=== PATIENT | male | born 1985 | race American Indian/Alaskan Native ===

== ENCOUNTER 2016-08-26 14:48 | Emergency (ER) | payer OTHER ==
--- NOTE | 2016-08-26 16:29 | EDM.PDOC ---
<Juan Keller - Last Filed: 08/26/16 18:44> ED HPI GENERAL MEDICAL PROBLEM - General Chief Complaint: Gastrointestinal Problem Stated Complaint: BLEEDING ULCER Time Seen by Provider: 08/26/16 17:36 Source of Information: Reports: Patient, RN Notes Reviewed History Limitations: Reports: No Limitations - History of Present Illness INITIAL COMMENTS - FREE TEXT/NARRATIVE: Complains of onset of upper abdominal pain and nausea yesterday worse today with vomiting times one. Patient reports generalized abdominal pain with cramping, pressure and distention. Over the past 7 to 8 hours he has developed some burning in the epigastric region. Denies any fevers or chills. Denies any stool changes. Patient takes some iron supplement which consistently keeps his stool dark greenish. Patient reports history of peptic ulcer disease and bowel obstruction. Severity: Severe Improves with: Reports: None Worsens with: Reports: Eating Associated Symptoms: Reports: No Other Symptoms Epigastric Pain Score (Numeric/FACES): 9 - Related Data Allergies Allergy/AdvReac Type Severity Reaction Status Date / Time lactose Allergy Stomach Verified 08/26/16 18:23 Upset Past Medical History Gastrointestinal History: Reports: Bowel Obstruction, GERD, GI Bleed, PUD Hematologic History: Reports: Anemia, Iron Deficiency - Past Surgical History GI Surgical History: Reports: EGD Social & Family History - Family History Family Medical History: Noncontributory - Tobacco Use Smoking Status *Q: Current Every Day Smoker Tobacco Use Within Last Twelve Months: Cigarettes Packs/Tins Daily: 0.3 - Alcohol Use Alcohol Use History: Yes Date/Time of Last Drink Comment: last drink over a year ago - Recreational Drug Use Recreational Drug Use: No ED ROS GENERAL - Review of Systems Review Of Systems: ROS reveals no pertinent complaints other than HPI. ED EXAM, GI/ABD - Physical Exam Exam: See Below Exam Limited By: No Limitations General Appearance: Alert, WD/WN, No Apparent Distress, Thin Eyes: Bilateral: Normal Appearance Nose: Normal Inspection, Normal Mucosa, No Blood Throat/Mouth: Normal Inspection, Normal Lips, Normal Teeth, Normal Gums, Normal Oropharynx, Normal Voice, No Airway Compromise Head: Atraumatic, Normocephalic Neck: Normal Inspection, Supple, Non-Tender, Full Range of Motion Respiratory/Chest: No Respiratory Distress, Lungs Clear, Normal Breath Sounds, No Accessory Muscle Use, Chest Non-Tender Cardiovascular: Regular Rate, Rhythm, No Edema GI/Abdominal: Soft, Tympanic Bowel Sounds, Tenderness (generalized upper abdominal). No: Guarding, Rebound, Rigidity Rectal (Males) Exam: Deferred (patient on oral iron supplementation) Back Exam: Normal Inspection, Full Range of Motion Extremities: Normal Inspection, Normal Range of Motion, Non-Tender, Normal Capillary Refill, No Pedal Edema Neurological: Alert, Oriented, CN II-XII Intact, Normal Cognition, Normal Gait, Normal Reflexes, No Motor/Sensory Deficits Psychiatric: Normal Affect, Normal Mood Skin Exam: Warm, Dry, Intact, Normal Color, No Rash Lymphatic: No Adenopathy Course - Vital Signs Last Recorded V/S: Last Vital Signs Temp 97.8 F 08/26/16 19:27 Pulse 58 L 08/26/16 19:27 Resp 22 H 08/26/16 19:27 BP 108/60 08/26/16 19:27 Pulse Ox 97 08/26/16 19:27 - Orders/Labs/Meds Orders: Active Orders 24 hr Category Date Time Status Peripheral IV Care [RC] . DIRECTED Care 08/26/16 17:43 Active DRUG SCREEN URINE BIORAD [URCHEM] Stat Lab 08/26/16 17:43 Uncollected UA W/MICROSCOPIC [URIN] Stat Lab 08/26/16 17:42 Uncollected Sodium Chloride 0.9% [Saline Flush] Med 08/26/16 17:42 Active 10 ml FLUSH ASDIRECTED PRN Peripheral IV Insertion Adult [OM.PC] Stat Oth 08/26/16 17:42 Ordered Medication Orders Sodium Chloride (Saline Flush) 10 ml FLUSH ASDIRECTED PRN PRN Reason: Keep Vein Open Last Admin: 08/26/16 18:08 Dose: 10 ml Labs: Laboratory Tests 08/26/16 08/26/16 Range/Units 17:58 17:58 WBC 11.5 H (5.0-10.0) 10^3/uL RBC 4.11 L (4.6-6.2) 10^6/uL Hgb 9.2 L (14.0-18.0) g/dL Hct 31.0 L (40.0-54.0) % MCV 75.4 L (80-100) fL MCH 22.4 L (27.0-34.0) pg MCHC 29.7 L (33.0-35.0) g/dL Plt Count 447 (150-450) 10^3/uL Neut % (Auto) 72.8 (42.2-75.2) % Lymph % (Auto) 19.3 L (20.5-50.1) % Crowley % (Auto) 6.2 (2-8) % Eos % (Auto) 1.2 (1.0-3.0) % Baso % (Auto) 0.5 (0.0-1.0) % Sodium 135 (135-145) mmol/L Potassium 3.9 (3.6-5.0) mmol/L Chloride 106 (101-111) mmol/L Carbon Dioxide 22.0 (21.0-31.0) mmol/L Anion Gap 10.9 BUN 10 (7-18) mg/dL Creatinine 0.7 (0.6-1.3) mg/dL Est Cr Clr Drug Dosing 108.90 mL/min Estimated GFR (MDRD) > 60 BUN/Creatinine Ratio 14.28 Glucose 87 (74-105) mg/dL Calcium 8.4 (8.4-10.2) mg/dl Total Bilirubin 0.6 (0.2-1.0) mg/dL AST 18 (10-42) IU/L ALT 14 (10-60) IU/L Alkaline Phosphatase 48 (42-121) IU/L Total Protein 7.1 (6.7-8.2) g/dl Albumin 3.9 (3.2-5.5) g/dl Globulin 3.2 Albumin/Globulin Ratio 1.22 Amylase 41 (28-100) U/L Lipase 21 L (22-51) U/L Ethyl Alcohol < 5 mg/dL Meds: Medications Generic Name Dose Route Start Last Admin Trade Name Freq PRN Reason Stop Dose Admin Sodium Chloride 10 ml 08/26/16 17:42 08/26/16 18:08 Saline Flush FLUSH 10 ml ASDIRECTED PRN Administration Keep Vein Open Discontinued Medications Generic Name Dose Route Start Last Admin Trade Name Freq PRN Reason Stop Dose Admin Sodium Chloride 1,000 mls @ 999 mls/hr 08/26/16 17:43 08/26/16 18:08 Normal Saline IV 08/26/16 18:43 999 mls/hr .BOLUS ONE Administration Iopamidol 75 ml 08/26/16 18:42 08/26/16 18:53 Isovue-300 (61%) IVPUSH 08/26/16 18:43 75 ml ONETIME ONE Administration Ondansetron HCl 4 mg 08/26/16 17:43 08/26/16 18:09 Zofran IV 08/26/16 17:44 4 mg ONETIME ONE Administration Pantoprazole Sodium 80 mg 08/26/16 17:44 08/26/16 18:10 Protonix Iv IVPUSH 08/26/16 17:45 80 mg .BOLUS ONE Administration - Radiology Interpretation Free Text/Narrative:: Abdomen x-ray: Per rad report is negative abdominal x-ray. Departure - Departure Disposition: Home, Self-Care 01 Clinical Impression: Gastroenteritis, Peptic ulcer disease - Discharge Information Instructions: Abdominal Pain, Adult, [id number] Additional Instructions: Protonix 40mg one every am Nothing solid for 24 hours then gradual increase in diet small amounts bland foodif tolerating chepe advance No alcohol Recheck Clinic on Sunday, if increase abdominal pain vomiting and distension <Eleonora Camilo - Last Filed: 08/26/16 19:56> Departure - Departure Time of Disposition: 19:46 Condition: fair
[2016-08-26] MEDS ORDERED: Sodium Chloride 0.9% 10 ML Syringe FLUSH PRN (17:42)
[2016-08-26] MEDS ORDERED: Sodium Chloride 0.9% 1,000 ML IV ONE (17:43)
[2016-08-26] MEDS ORDERED: Ondansetron 4 MG/2 ML SDV IV ONE (17:43)
[2016-08-26] MEDS ORDERED: Pantoprazole 40 MG Vial IVPUSH ONE (17:44)
[2016-08-26 18:22] LABS: CHLORIDE,CL 106 mmol/L (101-111); SODIUM,NA 135 mmol/L (135-145)
[2016-08-26] MEDS ORDERED: Iopamidol 612 MG/ML 75 ML Bottle IVPUSH ONE (18:42)
[2016-08-26 19:28] VITALS: BP 108/60
== END 2016-08-26 19:58 | disposition home or self-care (01) ==
LOC: DL.ED 14:48
DX: K52.9 Noninfective gastroenteritis and colitis, unspecified (principal); K27.9 Peptic ulcer, site unspecified, unspecified as acute or chronic, without hemorrhage or perforation; Z91.011 Allergy to milk products; K21.9 Gastro-esophageal reflux disease without esophagitis; F17.210 Nicotine dependence, cigarettes, uncomplicated
CPT/HCPCS: 36415; 74020; 74177; 80053; 82150; 83690; 85025; 96361; 96374; 96375; 99284; C9113; G0480; J2405; J7030; J7050; Q9967

== ENCOUNTER 2017-11-07 11:37 | Emergency (ER) | payer OTHER ==
[2017-11-07 11:56] VITALS: BP 110/81
[2017-11-07 12:12] LABS: ANION GAP 11.9; CHLORIDE,CL 105 mmol/L (101-111); SODIUM,NA 141 mmol/L (135-145)
[2017-11-07 12:15] LABS: ACETAMINOPHEN < 10
[2017-11-07] MEDS ORDERED: GI Cocktail Oral Solution 30 ML PO ONE (12:17)
--- NOTE | 2017-11-07 12:22 | CR ---
Clinical history: 31-year-old male chest pain. Interpretation: Upright AP portable chest unremarkable (external monitor worker leads). Normal cardiac silhouette without cephalization of flow, signs of alveolar edema or dependent pleural effusion. Left-sided aortic arch. No lung mass, hilar lymphadenopathy or focal lobar pneumonia. No atelectasis/collapse. No pneumothorax.
--- NOTE | 2017-11-07 12:51 | EDM.PDOC ---
ED HPI GENERAL MEDICAL PROBLEM - General Chief Complaint: Chest Pain Stated Complaint: STOMACH PAIN / ULCERS / CHEST PAIN Time Seen by Provider: 11/07/17 11:50 Source of Information: Reports: Patient History Limitations: Reports: No Limitations - History of Present Illness INITIAL COMMENTS - FREE TEXT/NARRATIVE: This 31 yo male patient reports to the ED with a 2 day history of a burning pressure in his chest. The patient reports he has a history of bleeding ulcers and was seen in the ED for this in the past. The patient reports that he has not followed-up with a primary care facility (due to not having a primary care provider). The patient reports he has been taking an over the counter medication for acid reduction, but quit taking the medication 2 days ago. Onset Date: 11/05/17 Duration: Constant, Getting Worse Location: Reports: Chest, Abdomen Quality: Reports: Ache, Burning, Pressure Severity: Moderate Improves with: Reports: None Worsens with: Reports: None Associated Symptoms: Reports: No Other Symptoms Chest Pain Score (Numeric/FACES): 10 - Related Data Allergies Allergy/AdvReac Type Severity Reaction Status Date / Time lactose Allergy Stomach Verified 08/26/16 18:23 Upset Home Meds: Home Meds Ranitidine [Zantac] 150 mg PO DAILY 11/07/17 [History] Past Medical History Gastrointestinal History: Reports: Bowel Obstruction, GERD, GI Bleed, PUD Other Gastrointestinal History: Bleeding Ulcer Hematologic History: Reports: Anemia, Iron Deficiency - Past Surgical History GI Surgical History: Reports: EGD Social & Family History - Family History Family Medical History: Noncontributory - Tobacco Use Smoking Status *Q: Current Some Day Smoker Years of Tobacco use: 20 Packs/Tins Daily: 1 - Caffeine Use Caffeine Use: Reports: Coffee, Energy Drinks, Soda, Tea - Recreational Drug Use Recreational Drug Type: Reports: Marijuana/Hashish Recreational Drug Use Frequency: Daily ED ROS GENERAL - Review of Systems Review Of Systems: ROS reveals no pertinent complaints other than HPI. ED EXAM, GENERAL - Physical Exam Exam: See Below Exam Limited By: No Limitations General Appearance: Alert, WD/WN, Moderate Distress Eye Exam: Bilateral Eye: EOMI, Normal Inspection, PERRL Ears: Normal External Exam, Normal Canal, Hearing Grossly Normal, Normal TMs Nose: Normal Inspection, Normal Mucosa, No Blood Throat/Mouth: Normal Inspection, Normal Lips, Normal Teeth, Normal Gums, Normal Oropharynx, Normal Voice, No Airway Compromise Head: Atraumatic, Normocephalic Neck: Normal Inspection, Supple, Non-Tender, Full Range of Motion Respiratory/Chest: No Respiratory Distress, Lungs Clear, Normal Breath Sounds, No Accessory Muscle Use, Chest Non-Tender Cardiovascular: Normal Peripheral Pulses, Regular Rate, Rhythm, No Edema, No Gallop, No JVD, No Murmur, No Rub GI/Abdominal: Normal Bowel Sounds, Soft, No Organomegaly, No Distention, No Abnormal Bruit, No Mass, Tender (mild upper abdominal tenderness) (Male) Exam: Deferred Rectal (Males) Exam: Deferred Back Exam: Normal Inspection, Full Range of Motion, NT Extremities: Normal Inspection, Normal Range of Motion, Non-Tender, Normal Capillary Refill, No Pedal Edema Neurological: Alert, Oriented, CN II-XII Intact, Normal Cognition, Normal Gait, Normal Reflexes, No Motor/Sensory Deficits Psychiatric: Normal Affect, Normal Mood Skin Exam: Warm, Dry, Intact, Normal Color, No Rash Lymphatic: No Adenopathy Course - Vital Signs Last Recorded V/S: Last Vital Signs Temp 36.8 C 11/07/17 11:43 Pulse 65 11/07/17 11:43 Resp 18 11/07/17 11:43 BP 110/81 11/07/17 11:43 Pulse Ox 100 11/07/17 11:43 - Orders/Labs/Meds Orders: Active Orders 24 hr Category Date Time Status EKG Documentation Completion [RC] URGENT Care 11/07/17 11:39 Active Labs: Laboratory Tests 11/07/17 11/07/17 11/07/17 Range/Units 11:47 11:47 11:47 WBC 15.5 H (5.0-10.0) 10^3/uL RBC 4.28 L (4.6-6.2) 10^6/uL Hgb 8.4 L (14.0-18.0) g/dL Hct 31.7 L (40.0-54.0) % MCV 74.1 L (80-100) fL MCH 19.6 L (27.0-34.0) pg MCHC 26.5 L (33.0-35.0) g/dL Plt Count 424 (150-450) 10^3/uL Neut % (Auto) 84.6 H (42.2-75.2) % Lymph % (Auto) 9.5 L (20.5-50.1) % Norman % (Auto) 5.2 (2-8) % Eos % (Auto) 0.1 L (1.0-3.0) % Baso % (Auto) 0.6 (0.0-1.0) % Sodium 141 (135-145) mmol/L Potassium 3.9 (3.6-5.0) mmol/L Chloride 105 (101-111) mmol/L Carbon Dioxide 28.0 (21.0-31.0) mmol/L Anion Gap 11.9 BUN 8 (7-18) mg/dL Creatinine 0.7 (0.6-1.3) mg/dL Est Cr Clr Drug Dosing 107.91 mL/min Estimated GFR (MDRD) > 60 BUN/Creatinine Ratio 11.42 Glucose 117 H (74-105) mg/dL Calcium 9.6 (8.4-10.2) mg/dl Total Bilirubin 0.5 (0.2-1.0) mg/dL AST 20 (10-42) IU/L ALT 13 (10-60) IU/L Alkaline Phosphatase 54 (42-121) IU/L Troponin I < 0.02 (0.00-0.02) ng/ml Total Protein 7.4 (6.7-8.2) g/dl Albumin 4.2 (3.2-5.5) g/dl Globulin 3.2 Albumin/Globulin Ratio 1.31 Amylase 48 (28-100) U/L Lipase 24 (22-51) U/L Salicylates < 4 Acetaminophen < 10 Ethyl Alcohol < 5 mg/dL Meds: Medications Discontinued Medications Generic Name Dose Route Start Last Admin Trade Name Freq PRN Reason Stop Dose Admin Al Hydroxide/Mg Hydroxide 30 ml 11/07/17 12:17 11/07/17 12:20 Gi Cocktail PO 11/07/17 12:18 30 ml ONETIME ONE Administration Departure - Departure Time of Disposition: 12:46 Disposition: Home, Self-Care 01 Condition: Fair Clinical Impression: Nonspecific chest pain, Peptic ulcer disease GERD (gastroesophageal reflux disease) Qualifiers: Esophagitis presence: esophagitis presence not specified Qualified Code(s): K21.9 - Gastro-esophageal reflux disease without esophagitis - Discharge Information *PRESCRIPTION DRUG MONITORING PROGRAM REVIEWED*: Not Applicable *COPY OF PRESCRIPTION DRUG MONITORING REPORT IN PATIENT TRISH: Not Applicable Instructions: Peptic Ulcer, [id number], Nonspecific Chest Pain, [id number] , Gastroesophageal Reflux Disease, Adult, [id number] Forms: ED Department Discharge Care Plan Goals: The patient was advised of the examination, lab, x-ray and EKG results during the visit. The patient was given a GI cocktail while in the ED with some symptom relief. The patient was discharged with a script for Omeprazole (20 mg) #45 to take 1 by mouth 2 times per day for 7 days, then 1 by mouth daily until gone. The patient should follow-up with a primary care facility for further evaluation (GI specialist) and treatment. If the patient has any additional symptoms or concerns, the patient should follow-up with his primary care facility or return to the emergency department. - My Orders Last 24 Hours: My Active Orders 11/07/17 11:39 EKG Documentation Completion [RC] URGENT - Assessment/Plan Last 24 Hours: My Active Orders 11/07/17 11:39 EKG Documentation Completion [RC] URGENT
== END 2017-11-07 13:03 | disposition home or self-care (01) ==
LOC: DL.ED 11:37
DX: K27.9 Peptic ulcer, site unspecified, unspecified as acute or chronic, without hemorrhage or perforation (principal); K21.9 Gastro-esophageal reflux disease without esophagitis; Z91.011 Allergy to milk products; F17.210 Nicotine dependence, cigarettes, uncomplicated
CPT/HCPCS: 36415; 71045; 80053; 82150; 83690; 84484; 85025; 93005; 93010; 99285; A9270; G0480